=== PATIENT | female | born 1965 | race Caucasian/White ===

== ENCOUNTER → 2016-12-28 | Outpatient (CLI) | payer BC ==
[2016-02-13 06:45] VITALS: BP 142/82
[~2016-12-28] MED LIST: LEVO500T8 PO; PRED-220 PO; SERT50TA8 PO
--- NOTE | 2016-12-28 14:07 | CARD ---
APPROVED REPORT INDICATION Chest Pain Reason : Patient complained of shortness of breath PROCEDURE The patient underwent an Exercise Stress Test using the Kalin Protocol. Blood pressure, heart rate, a nd EKG were monitored. An Echocardiogram was performed by sound technician in four stages in quad fashion. At peak stress four se lected images were obtained and placed side by side with resting images for comparison. STRESS ECHO FINDINGS The resting Echocardiogram showed normal left ventricular contractility with an estimated Ejection Fr action of about 60 %. Normal augmentation of myocardial wall segments using a 16 segment model. Test Type: Exercise Stress Nurse/Tech: MARLEEN Alegre RN Test Indications: Chest pain Cardiac History and Allergies: see EHR Medications: see EHR Medical History: see EHR Resting ECG: SR Resting Heart Rate: 84 bpm Resting Blood Pressure: 145/73mmHg Pretest Chest Pain: No chest pain Nurse/Tech Notes Lungs CTA, heart tones WNL Consent: The procedure was explained to the patient in lay terms. Informed consent was witnessed. Kwasi eout was entered into [employer]. History and Stress Test performed by A Levi Stress Symptoms Dyspnea POST EXERCISE Reason for Termination: Reached target heart rate Target HR: Yes Max HR: 190 bpm 112% of Maximum Predicted HR: 169 bpm Exercise duration: 3:00 min:sec, 1 Stage Exercise capacity: 4.6METs Max Blood Pressure: 206/70mmHg Blood Pressure response to exercise: Normal blood pressure response during stress. Chest Pain: No. Arrhythmia: Yes. Runs of SVT ST Change: No. INTERPRETATION Stress EKG Conclusion: No acute changes were noted. RESTING ECG Rhythm: Sinus Repolarization: Normal STRESS ECG Stress EKG shows no significant changes. Preliminary Notification Critical Value: No <Conclusion> The left ventricle is normal in size and wall thickness in both the rest and stress images. No significant EKG changes to suggest ischemia. Low aerobic capacity. Total exercise time of 3 minutes only.
== END | disposition home or self-care (01) ==
LOC: ECHO 12:37
PROVIDERS: ATTEND Physician Assistant Medical
DX: R07.9 Chest pain, unspecified (principal); R06.02 Shortness of breath
CPT/HCPCS: 93017; 93350

== ENCOUNTER → 2017-02-27 | Day surgery (SDC) | payer BC ==
[~2017-02-27] MED LIST changes: +IV RINGERS,LACTATED 1000ML 1,000 ML IV SCH; +LIDOCAINE 2% PF Vial for OR 5 ML VIAL. ONE; +PROPOFOL 40 ML IV ONE
[2017-02-27 08:34] VITALS: BP 142/72
== END | disposition home or self-care (01) ==
LOC: ENDOS 06:52
PROVIDERS: ATTEND Internal Medicine Gastroenterology
DX: Z12.11 Encounter for screening for malignant neoplasm of colon (principal); K64.0 First degree hemorrhoids; F41.9 Anxiety disorder, unspecified; E66.9 Obesity, unspecified; Z83.3 Family history of diabetes mellitus; Z87.442 Personal history of urinary calculi
CPT/HCPCS: 45378; 99156; J2704

== ENCOUNTER → 2017-05-29 | Outpatient (CLI) | payer BC ==
[2017-02-27 08:34] VITALS: BP 142/72
[~2017-05-29] MED LIST changes: +BUPIVACAINE MPF 0.5% 10 ML VIAL for KCIC. IJ ONE; +IOHEXOL 300 MG/ML 50 ML VIAL. INT ART ONE; -IV RINGERS,LACTATED 1000ML 1,000 ML IV SCH; +LIDOCAINE 1% Multi-Dose 20 ML VIAL. ID ONE; -LIDOCAINE 2% PF Vial for OR 5 ML VIAL. ONE; -PROPOFOL 40 ML IV ONE; +methylPREDNISolone ACETATE 40 MG/ML VIAL. INT ART ONE
--- NOTE | 2017-05-29 11:28 | KCIC ---
[Right] hip injection History: [Right] hip pain for 6-7 weeks Findings: Patient was informed of the risks to include pain, infection, bleeding, nerve or blood vessel injury, and allergic reaction. All questions were answered. The patient signed a written consent form for a [right] hip injection. Patient was placed in a supine position. External skin site overlying the [right] hip was prepped and draped in the usual sterile fashion. Betadine was utilized for cleansing solution. 1% lidocaine was utilized for local anesthesia to the depth of the [right] femoral neck. 22-gauge spinal needle was advanced to the margin of the [right] femoral neck. Solution containing 2 mL Depo-Medrol, 4 cc lidocaine, 4 cc Omnipaque 300, and 4 cc Marcaine were injected. Injection demonstrated intra-articular position of the needle tip. Needle was removed. There were no immediate complications. Bandage was applied at site of puncture. Fluoroscopy time: [31] seconds, [1] fluoroscopic image. Impression: 1. Technically successful right hip injection without immediate complication as stated. Electronically signed by: Jeremiah Jessica MD (05/29/2017 11:25 AM) [email or web address]
== END | disposition home or self-care (01) ==
LOC: KCIC 10:07
PROVIDERS: ATTEND Nurse Practitioner Gerontology
DX: M16.11 Unilateral primary osteoarthritis, right hip (principal)
CPT/HCPCS: 20610; 77002; J1030; Q9967